=== PATIENT | female | born 1985 | race Caucasian/White ===

== ENCOUNTER 2022-02-02 19:09 | Inpatient (IN) | payer BC ==
[~2022-02-02 19:09] MED LIST: Bupivacaine 0.25% HCL 30 ML VIAL ONE; ePHEDrine Sulfate 50 MG/10 ML VIAL ONE
[2022-02-02 19:39] VITALS: BMI 40.3
[2022-02-02] MEDS ORDERED: Acetaminophen 500 MG TAB PO PRN (19:48)
[2022-02-02] MEDS ORDERED: Carboprost 250 MCG/ML AMP IM PRN (19:48)
[2022-02-02] MEDS ORDERED: Promethazine HCl 25 MG/ML VIAL IM PRN (19:48)
[2022-02-02] MEDS ORDERED: Methylergonovine 0.2 MG/ML VIAL IM PRN (19:48)
[2022-02-02] MEDS ORDERED: Lidocaine 1% (PF) 30 ML VIAL SC PRN (19:48)
[2022-02-02] MEDS ORDERED: Ondansetron PF 4 MG/2 ML Vial IVP PRN (19:48)
[2022-02-02] MEDS ORDERED: Butorphanol Tartrate 1 MG/ML VIAL SLOW IVP PRN (19:48)
[2022-02-02] MEDS ORDERED: Ibuprofen 800 MG TAB PO PRN (19:48)
[2022-02-02] MEDS ORDERED: Misoprostol 200 MCG TAB PR PRN (19:48)
[2022-02-02] MEDS ORDERED: HYDROcodone/Acetaminophen 5/325 mg Tablet PO PRN (19:48)
[2022-02-02] MEDS ORDERED: Diphenoxylate HCl/Atropine Tablet PO PRN (19:48)
[2022-02-02] MEDS ORDERED: hydrALAZINE 20 MG/ML VIAL SLOW IVP PRN (19:48)
[2022-02-02] MEDS ORDERED: NS w/ Oxytocin 30 units 500 ML IV SCH ×2 (20:00)
[2022-02-02] MEDS: Misoprostol 100 MCG TAB VAG SCH (20:41)
[2022-02-02 21:02] LABS: Hemoglobin 12.3 g/dL (12.0-15.5); Mean Corpuscular HGB CONC 34.4 g/dL (32.0-36.0); Mean Corpuscular Hemoglobin 31.4 pg (27.0-33.0); Mean Corpuscular Volume 91.3 fl (81.6-98.3); Mean Platelet Volume 10.6 fl (7.4-10.4); Platelet Count 224 10x3/uL (150-450); RBC Distribution Width 14.4 % (11.5-14.5); Red Blood Cell (RBC) Count 3.92 10x6/uL (3.90-5.03)
[2022-02-02 21:21] LABS: ALT (SGPT) 103 U/L (8-55); AST (SGOT) 58 U/L (5-34); Albumin 3.3 g/dL (3.5-5.0); Alkaline Phosphatase 150 U/L (40-110); Anion Gap 14 mmol/L (10-20); BUN (Urea Nitrogen) 8 mg/dL (7.0-18.7); Bilirubin, Total 0.6 mg/dL (0.2-1.2); Calc. Creatinine Clearance 261 mL/min (70-130); Carbon Dioxide 21 mmol/L (22-29); Chloride 103 mmol/L (98-107); Estimated GFR 121; Globulin 3.4 g/dL (2.4-3.5); Glucose 65 mg/dL (70-105); Potassium 3.3 mmol/L (3.5-5.1); Protein, Total 6.7 g/dL (6.0-8.3); Sodium 135 mmol/L (136-145)
[2022-02-02 21:28] LABS: SARS-CoV-2 NAA Rapid Test Not Detected (NotDetected)
[2022-02-02 22:03] LABS: HBSAg Index 0.17 S/CO (0-0.99); Hep B Surf Ag Non-Reactive S/CO (NonReactive)
[2022-02-02 22:07] LABS: Syphilis Antibody Nonreactive (Nonreactive); Syphilis Antibody Index 0.05 S/CO (<1.00 Non-Reactive)
[2022-02-03] MEDS ORDERED: Fentanyl 2 mcg/Bup 0.1% Cadd 100 ML ONE (04:10)
[2022-02-03] MEDS: Lactated Ringer's 1,000 ML IV SCH ×2 (04:35→14:37)
[2022-02-03] MEDS ORDERED: Promethazine HCl 25 MG/ML VIAL IM PRN ×2 (05:00→13:54)
[2022-02-03] MEDS ORDERED: Fentanyl 2 mcg/Bupivacaine 0.1% Cassette 100 ML EPIDURAL SCH (05:00)
[2022-02-03] MEDS ORDERED: Moisturizing Cream (Eucerin) 113 GM JAR TOP PRN (05:00)
[2022-02-03] MEDS ORDERED: Ondansetron PF 4 MG/2 ML Vial IVP PRN ×2 (05:00→13:54)
[2022-02-03] MEDS ORDERED: ePHEDrine Sulfate 50 MG/10 ML VIAL SLOW IVP PRN (05:00)
[2022-02-03] MEDS ORDERED: Naloxone HCl 0.4 mg/ml Vial IVP PRN ×2 (05:00)
[2022-02-03] MEDS ORDERED: Lactated Ringer's 500 ML IV PRN (05:00)
[2022-02-03] MEDS ORDERED: Acetaminophen 325 MG TAB PO PRN (05:00)
[2022-02-03] MEDS ORDERED: diphenhydrAMINE 50 MG/ML VIAL IVP PRN (05:00)
[2022-02-03] MEDS ORDERED: Communication Order-Pharmacy FS SCH (05:00)
[2022-02-03] MEDS ORDERED: HYDROcodone/Acetaminophen 5/325 mg Tablet PO PRN ×2 (13:54)
[2022-02-03] MEDS ORDERED: Bisacodyl 10 MG SUPP PR PRN (13:54)
[2022-02-03] MEDS ORDERED: Lanolin Ointment 7 GM TUBE TOP PRN (13:54)
[2022-02-03] MEDS ORDERED: diphenhydrAMINE 25 MG CAP PO PRN (13:54)
[2022-02-03] MEDS ORDERED: Benzocaine-Menthol 82.5 ML CAN TOP PRN (13:54)
[2022-02-03] MEDS ORDERED: hydrALAZINE 20 MG/ML VIAL SLOW IVP PRN (13:54)
[2022-02-03] MEDS ORDERED: Boostrix 0.5 ML (Tdap) VIAL (>/=7 yrs of age) IM ONE (13:54)
[2022-02-03] MEDS ORDERED: Preparation H Ointment 28 GM TUBE PR PRN (13:54)
[2022-02-03] MEDS ORDERED: Milk Of Magnesia 30 ML UDCUP PO PRN (13:54)
[2022-02-03] MEDS: Ibuprofen 800 MG TAB PO SCH ×2 (14:25→21:37)
[2022-02-03] MEDS: Misoprostol 100 MCG TAB VAG SCH ×2 (14:36→14:37)
[2022-02-03] MEDS: Ferrous Sulfate 325 MG TAB PO SCH (14:42)
[2022-02-03] MEDS: Docusate 100 MG CAP PO SCH (21:37)
[2022-02-04] MEDS: Ibuprofen 800 MG TAB PO SCH (05:44)
[2022-02-04] MEDS: Ferrous Sulfate 325 MG TAB PO SCH (07:06)
[2022-02-04 07:40] VITALS: BP 100/55; TEMP 98.4
[2022-02-04] MEDS: Docusate 100 MG CAP PO SCH (07:46)
[2022-02-04] MEDS ORDERED: Prenatal Vitamin 1 TAB PO SCH (09:00)
== END 2022-02-04 14:00 | disposition home or self-care (01) | DRG 805 ==
LOC: CSHLD 19:09 → CSHPP 02-03 14:03
PROVIDERS: ADMIT Student in an Organized Health Care Education/Training Program; ATTEND Student in an Organized Health Care Education/Training Program
PROC: 10E0XZZ Delivery of Products of Conception, External Approach (ICD-10-PCS; principal; 2022-02-03)
PROC: 10907ZC Drainage of Amniotic Fluid, Therapeutic from Products of Conception, Via Natural or Artificial Opening (ICD-10-PCS; 2022-02-03)
PROC: 0UQMXZZ Repair Vulva, External Approach (ICD-10-PCS; 2022-02-03)
DX: O26.62 Liver and biliary tract disorders in childbirth (principal); K83.1 Obstruction of bile duct; Z37.0 Single live birth; Z3A.38 38 weeks gestation of pregnancy; O24.425 Gestational diabetes mellitus in childbirth, controlled by oral hypoglycemic drugs; F32.A Depression, unspecified; F41.9 Anxiety disorder, unspecified; O99.344 Other mental disorders complicating childbirth; Z79.84 Long term (current) use of oral hypoglycemic drugs; Z79.899 Other long term (current) drug therapy; O71.82 Other specified trauma to perineum and vulva
CPT/HCPCS: 36415; 36416; 51702; 85027; 86780; 86850; 86900; 86901; 87340; J2405; J2590; J7120; S0020; U0002

== ENCOUNTER 2022-02-05 14:18 | Emergency (ER) | payer BC ==
[2022-02-05 16:02] LABS: #Eosinphils 0.3 10x3/uL (0.0-0.5); #Monocytes 0.6 10x3/uL (0.0-1.1); #Neutrophils 5.3 10x3/uL (1.5-8.4); %Basophils 0.1 % (0.0-2.0); %Eosinophils 3.5 % (0.0-6.0); %Lymphocytes 25.4 % (18.0-47.0); %Monocytes 7.7 % (0.0-10.0); %Neutrophils 63.1 % (40.0-75.0); Hemoglobin 11.3 g/dL (12.0-15.5); Mean Corpuscular HGB CONC 33.3 g/dL (32.0-36.0); Mean Corpuscular Hemoglobin 31.2 pg (27.0-33.0); Mean Corpuscular Volume 93.6 fl (81.6-98.3); Platelet Count 278 10x3/uL (150-450); RBC Distribution Width 14.6 % (11.5-14.5); Red Blood Cell (RBC) Count 3.62 10x6/uL (3.90-5.03); White Blood Cell (WBC) Count 8.3 10x3/uL (3.5-10.5)
[2022-02-05 16:26] LABS: ALT (SGPT) 104 U/L (8-55); AST (SGOT) 55 U/L (5-34); Alkaline Phosphatase 130 U/L (40-110); Anion Gap 11 mmol/L (10-20); BUN (Urea Nitrogen) 7 mg/dL (7.0-18.7); Bilirubin, Total 0.4 mg/dL (0.2-1.2); Calc. Creatinine Clearance 0 mL/min (70-130); Calcium 8.7 mg/dL (7.8-10.44); Carbon Dioxide 23 mmol/L (22-29); Chloride 106 mmol/L (98-107); Estimated GFR 120; Globulin 2.9 g/dL (2.4-3.5); Glucose 99 mg/dL (70-105); Potassium 3.7 mmol/L (3.5-5.1); Protein, Total 5.9 g/dL (6.0-8.3); Sodium 136 mmol/L (136-145)
== END 2022-02-05 17:00 | disposition home or self-care (01) ==
LOC: CSHERS 14:18
DX: O90.89 Other complications of the puerperium, not elsewhere classified (principal); R60.0 Localized edema; R94.5 Abnormal results of liver function studies
CPT/HCPCS: 36415; 80053; 85025; 99284

== ENCOUNTER 2022-02-09 13:12 | Inpatient (IN) | payer BC, MEDICAID ==
[2022-02-09] MEDS ORDERED: Tranexamic Acid 1,000 MG/10 ML VIAL ONE ×2 (13:59→16:37)
[2022-02-09 14:03] LABS: #Eosinphils 0.4 10x3/uL (0.0-0.5); #Monocytes 0.6 10x3/uL (0.0-1.1); #Neutrophils 8.8 10x3/uL (1.5-8.4); %Basophils 0.2 % (0.0-2.0); %Eosinophils 2.9 % (0.0-6.0); %Lymphocytes 21.5 % (18.0-47.0); %Neutrophils 69.8 % (40.0-75.0); Hemoglobin 11.8 g/dL (12.0-15.5); Mean Corpuscular HGB CONC 34.9 g/dL (32.0-36.0); Mean Corpuscular Hemoglobin 31.8 pg (27.0-33.0); Mean Corpuscular Volume 91.1 fl (81.6-98.3); Mean Platelet Volume 9.7 fl (7.4-10.4); Platelet Count 371 10x3/uL (150-450); RBC Distribution Width 13.7 % (11.5-14.5); Red Blood Cell (RBC) Count 3.71 10x6/uL (3.90-5.03); White Blood Cell (WBC) Count 12.7 10x3/uL (3.5-10.5)
[2022-02-09 14:17] LABS: ALT (SGPT) 54 U/L (8-55); AST (SGOT) 25 U/L (5-34); Albumin 3.3 g/dL (3.5-5.0); Alkaline Phosphatase 112 U/L (40-110); Anion Gap 12 mmol/L (10-20); BUN (Urea Nitrogen) 10 mg/dL (7.0-18.7); Bilirubin, Total 0.4 mg/dL (0.2-1.2); Calc. Creatinine Clearance 0 mL/min (70-130); Calcium 8.8 mg/dL (7.8-10.44); Carbon Dioxide 22 mmol/L (22-29); Chloride 107 mmol/L (98-107); Estimated GFR 118; Globulin 2.9 g/dL (2.4-3.5); Glucose 99 mg/dL (70-105); Potassium 3.3 mmol/L (3.5-5.1); Protein, Total 6.2 g/dL (6.0-8.3); Sodium 138 mmol/L (136-145)
[2022-02-09] MEDS ORDERED: Methylergonovine 0.2 MG/ML VIAL ONE ×2 (14:47→16:17)
[2022-02-09] MEDS ORDERED: Dexamethasone 20 MG/5 ML VIAL ONE (15:15)
[2022-02-09] MEDS ORDERED: PROPOFOL 20 ML ONE (15:15)
[2022-02-09] MEDS ORDERED: Ondansetron PF 4 MG/2 ML Vial ONE (15:15)
[2022-02-09] MEDS ORDERED: Fentanyl 100 MCG/2 ML VIAL ONE ×2 (15:15→16:35)
[2022-02-09] MEDS ORDERED: Lidocaine 4% PF 5 ML AMP ONE (15:16)
[2022-02-09] MEDS ORDERED: Lidocaine 1% PF 5 ML VIAL ONE (15:16)
[2022-02-09] MEDS ORDERED: Succinylcholine 200 MG/10 ml SYRINGE FS ONE (15:16)
[2022-02-09] MEDS ORDERED: Ketorolac Tromethamine 30 MG/ML VIAL ONE (16:01)
[2022-02-09] MEDS ORDERED: ePHEDrine Sulfate 50 MG/10 ML VIAL ONE (16:02)
[2022-02-09 16:03] LABS: SARS-CoV-2 NAA Rapid Test Not Detected (NotDetected)
[2022-02-09] MEDS ORDERED: Glycopyrrolate 0.2 MG/ML 5 ML SYRINGE ONE (16:09)
[2022-02-09] MEDS ORDERED: Oxytocin 10 UNITS/ML VIAL ONE (16:23)
[2022-02-09] MEDS ORDERED: PHENYLEPHRINE-NS 100 MCG/ML 10 ML SYRINGE ONE (16:24)
[2022-02-09] MEDS ORDERED: Misoprostol 200 MCG TAB ONE (16:32)
[2022-02-09] MEDS ORDERED: Phenylephrine 10 MG/ML VIAL ONE (16:37)
[2022-02-09] MEDS ORDERED: Sodium Chloride 0.9% 50 ML ONE (16:38)
[2022-02-09] MEDS ORDERED: Albumin 5% 250 ML ONE (16:50)
[2022-02-09] MEDS ORDERED: Carboprost 250 MCG/ML AMP IM SCH (17:00)
[2022-02-09] MEDS ORDERED: Ondansetron PF 4 MG/2 ML Vial IVP PRN (17:24)
[2022-02-09] MEDS ORDERED: Morphine 2 MG/ML VIAL SLOW IVP PRN (17:24)
[2022-02-09] MEDS ORDERED: Piperacillin/Tazobactam 3.375 GM in Sodium Chloride 0.9% 100 ML IVPB SCH ×2 (18:00→20:00)
[2022-02-09 18:02] LABS: Hemoglobin 10.5 g/dL (12.0-15.5)
[2022-02-09 18:03] LABS: Anion Gap 13 mmol/L (10-20); BUN (Urea Nitrogen) 11 mg/dL (7.0-18.7); Calc. Creatinine Clearance 0 mL/min (70-130); Carbon Dioxide 20 mmol/L (22-29); Chloride 109 mmol/L (98-107); Estimated GFR 118; Glucose 132 mg/dL (70-105); Potassium 4.5 mmol/L (3.5-5.1); Sodium 137 mmol/L (136-145)
[2022-02-09 18:13] LABS: PTT 23.9 sec (22.0-33.0); Prothrombin Time 10.5 sec (9.5-12.1)
[2022-02-09] MEDS: Lactated Ringer's 1,000 ML IV SCH (19:53)
[2022-02-09] MEDS: HYDROcodone/Acetaminophen 5/325 mg Tablet PO PRN (20:35)
[2022-02-09] MEDS: Methylergonovine 0.2 MG TAB PO SCH (20:36)
[2022-02-09 20:45] LABS: PTT 23.8 sec (22.0-33.0); Prothrombin Time 10.4 sec (9.5-12.1)
[2022-02-09 22:02] LABS: Hemoglobin 10.5 g/dL (12.0-15.5); Mean Corpuscular HGB CONC 34.4 g/dL (32.0-36.0); Mean Corpuscular Hemoglobin 30.9 pg (27.0-33.0); Mean Corpuscular Volume 89.7 fl (81.6-98.3); Mean Platelet Volume 9.1 fl (7.4-10.4); Platelet Count 286 10x3/uL (150-450); RBC Distribution Width 14.6 % (11.5-14.5); White Blood Cell (WBC) Count 20.5 10x3/uL (3.5-10.5)
[2022-02-09 22:03] LABS: MDiff Complete? YES; Platelet Morphology Comment Appears Adequate
[2022-02-09 22:49] LABS: Band 5 % (5-11); Lymphocytes 3 % (21-51); Monocytes 2 % (0-10); Neutrophil 88 % (42-75); Reactive Lymphocytes 2 % (0-10)
[2022-02-10] MEDS: Methylergonovine 0.2 MG TAB PO SCH (00:46)
[2022-02-10] MEDS: HYDROcodone/Acetaminophen 5/325 mg Tablet PO PRN ×2 (00:46→11:27)
[2022-02-10] MEDS: Piperacillin/Tazobactam 3.375 GM in Sodium Chloride 0.9% 100 ML IVPB SCH ×3 (01:16→15:32)
[2022-02-10 05:27] LABS: #Monocytes 0.7 10x3/uL (0.0-1.1); #Neutrophils 11.9 10x3/uL (1.5-8.4); %Basophils 0.2 % (0.0-2.0); %Eosinophils 0.1 % (0.0-6.0); %Monocytes 5.1 % (0.0-10.0); %Neutrophils 81.1 % (40.0-75.0); Hemoglobin 9.2 g/dL (12.0-15.5); Mean Corpuscular HGB CONC 34.2 g/dL (32.0-36.0); Mean Corpuscular Hemoglobin 31.3 pg (27.0-33.0); Mean Corpuscular Volume 91.5 fl (81.6-98.3); Mean Platelet Volume 9.9 fl (7.4-10.4); Platelet Count 315 10x3/uL (150-450); RBC Distribution Width 14.9 % (11.5-14.5); Red Blood Cell (RBC) Count 2.94 10x6/uL (3.90-5.03); White Blood Cell (WBC) Count 14.7 10x3/uL (3.5-10.5)
[2022-02-10] MEDS: Lactated Ringer's 1,000 ML IV SCH ×2 (09:59→12:05)
[2022-02-10] MEDS ORDERED: Lactated Ringer's 1,000 ML IV SCH (12:45)
[2022-02-10 17:17] VITALS: BP 88/50; TEMP 98.2
== END 2022-02-10 17:55 | disposition home or self-care (01) | DRG 769 ==
LOC: CSHERS 13:12 → CSHPP 19:31
PROVIDERS: ADMIT Obstetrics & Gynecology; ATTEND Obstetrics & Gynecology
PROC: 30233N1 Transfusion of Nonautologous Red Blood Cells into Peripheral Vein, Percutaneous Approach (ICD-10-PCS; principal; 2022-02-09)
PROC: 0W3R7ZZ Control Bleeding in Genitourinary Tract, Via Natural or Artificial Opening (ICD-10-PCS; 2022-02-09)
PROC: 10D17Z9 Manual Extraction of Products of Conception, Retained, Via Natural or Artificial Opening (ICD-10-PCS; 2022-02-09)
DX: O72.2 Delayed and secondary postpartum hemorrhage (principal); O99.43 Diseases of the circulatory system complicating the puerperium; Z20.822 Contact with and (suspected) exposure to COVID-19; O24.430 Gestational diabetes mellitus in the puerperium, diet controlled; F31.9 Bipolar disorder, unspecified; F41.9 Anxiety disorder, unspecified; Z90.89 Acquired absence of other organs; Z79.899 Other long term (current) drug therapy; Z83.3 Family history of diabetes mellitus; Z82.49 Family history of ischemic heart disease and other diseases of the circulatory system; I95.9 Hypotension, unspecified
CPT/HCPCS: 36415; 36430; 76856; 80053; 85025; 85384; 85610; 85730; 86850; 86900; 86901; 88305; 94760; J1100; J1885; J2210; J2370; J2405; J2543; J2590; J2704; J3010; J3490; J7120; P9016; P9045

== ENCOUNTER 2023-07-02 12:59 | Emergency (ER) | payer BC ==
[2023-07-02 13:36] LABS: #Basophils 0.02 10x3/uL (0.0-0.2); #Eosinphils 0.39 10x3/uL (0.0-0.5); #Monocytes 0.51 10x3/uL (0.0-1.1); #Neutrophils 3.43 10x3/uL (1.5-8.4); %Basophils 0.3 % (0.0-2.0); %Eosinophils 5.7 % (0.0-6.0); %Lymphocytes 36.2 % (18.0-47.0); %Monocytes 7.4 % (0.0-10.0); %Neutrophils 50.1 % (40.0-75.0); Hematocrit 38.8 % (34.9-44.5); Hemoglobin 13.3 g/dL (12.0-15.5); Mean Corpuscular HGB CONC 34.3 g/dL (32.0-36.0); Mean Corpuscular Hemoglobin 30.1 pg (27.0-33.0); Mean Corpuscular Volume 87.8 fl (81.6-98.3); Mean Platelet Volume 9.2 fl (7.4-10.4); Platelet Count 293 10x3/uL (150-450); Red Blood Cell (RBC) Count 4.42 10x6/uL (3.90-5.03); White Blood Cell (WBC) Count 6.9 10x3/uL (3.5-10.5)
[2023-07-02 13:45] LABS: Prothrombin Time 10.8 sec (9.5-12.1)
[2023-07-02 13:52] LABS: ALT (SGPT) 20 U/L (8-55); AST (SGOT) 21 U/L (5-34); Albumin 4.2 g/dL (3.5-5.0); Alkaline Phosphatase 80 U/L (40-110); Anion Gap 16 mmol/L (10-20); BUN (Urea Nitrogen) 11 mg/dL (7.0-18.7); Bilirubin, Total 0.5 mg/dL (0.2-1.2); Calc. Creatinine Clearance 0 mL/min (70-130); Calcium 9.6 mg/dL (7.8-10.44); Carbon Dioxide 21 mmol/L (22-29); Chloride 106 mmol/L (98-107); Estimated GFR 107; Glucose 105 mg/dL (70-105); Protein, Total 7.2 g/dL (6.0-8.3); Sodium 139 mmol/L (136-145)
[2023-07-02] MEDS ORDERED: Ketorolac Tromethamine 30 MG (1 mL) VIAL ONE (15:50)
== END 2023-07-02 15:56 | disposition home or self-care (01) ==
LOC: CSHERS 12:59
DX: R20.0 Anesthesia of skin (principal); G62.9 Polyneuropathy, unspecified
CPT/HCPCS: 36415; 36416; 70496; 70498; 80053; 83735; 85025; 85610; 85730; 86850; 86900; 86901; 93005; 94760; 96374; J1885